=== PATIENT | male | born 1975 | race Caucasian/White ===

== ENCOUNTER 2018-03-02 15:49 | Emergency (ER) | payer OTHER ==
[2018-03-02 16:06] VITALS: BP 114/89; PULSE 96; TEMP 98.3; BMI 27.1
--- NOTE | 2018-03-02 16:07 | PDOC ---
Rapid Medical Evaluation Time Seen by Provider: 03/02/18 16:03 Medical Evaluation: Allergies Allergy/AdvReac Type Severity Reaction Status Date / Time No Known Allergies Allergy Verified 03/02/18 16:01 Vital Signs Temp Pulse Resp BP Pulse Ox 98.3 F 96 H 18 114/89 100 03/02/18 16:01 03/02/18 16:01 03/02/18 16:01 03/02/18 16:01 03/02/18 16:01 03/02/18 16:04 Pt c/o: left thumb exposed to body fluid, (wearing gloves) YPD pt on exam: noted seperation of cuticle from corner of nail bed of left 1 st digit Pt ordered for:none (pt debating labwork, meds, etc) p to proceed to the ED Discharge Disposition - Diagnosis Patient exposure to body fluids - Referrals - Patient Instructions - Post Discharge Activity
--- NOTE | 2018-03-02 17:08 | PDOC ---
History of Present Illness - General Chief Complaint: Blood/Body Fluid Exposure SJR Stated Complaint: LT THUMB PAIN, BODILY EXPOSURE (YPD) Time Seen by Provider: 03/02/18 16:03 Past History - Past Medical History Allergies/Adverse Reactions: Allergies Allergy/AdvReac Type Severity Reaction Status Date / Time No Known Allergies Allergy Verified 03/02/18 16:01 Home Medications: Ambulatory Orders Cephalexin Monohydrate [Keflex -] 500 mg PO BID #14 capsule 03/02/18 - Immunization History Immunization Up to Date: Yes - Suicide/Smoking/Psychosocial Hx Smoking Status: No Smoking History: Never smoked Number of Cigarettes Smoked Daily: 0 Hx Alcohol Use: No Drug/Substance Use Hx: No *Physical Exam - Vital Signs Last Vital Signs Temp Pulse Resp BP Pulse Ox 98.3 F 96 H 18 114/89 100 03/02/18 16:01 03/02/18 16:01 03/02/18 16:01 03/02/18 16:01 03/02/18 16:01 *DC/Admit/Observation/Transfer Diagnosis at time of Disposition: Patient exposure to body fluids, Avulsion fracture - Discharge Dispostion Disposition: HOME Condition at time of disposition: Stable Decision to Admit order: No - Referrals Referrals: Abdulkadir Frank MD [Staff Physician] - - Patient Instructions Printed Discharge Instructions: DI for Avulsion Fracture Additional Instructions: Your x-ray showed a small fracture in the thumb. Given the cut, please take the antibiotics for the next week. Wear the spint for the next week You may take Motrin 800mg every 8 hours as needed for pain Ice the finger as needed for pain Follow up with ortho next week. A referral has been provided. Return to the ED if you have worsening pain, fevers, chills, or if you have any changes in your symptoms - Post Discharge Activity Forms/Work/School Notes: Back to Work
== END 2018-03-02 17:18 | disposition home or self-care (01) ==
LOC: JER 15:49
PROC: 2W3HX1Z Immobilization of Left Thumb using Splint (ICD-10-PCS; principal; 2018-03-02)
DX: Z77.21 Contact with and (suspected) exposure to potentially hazardous body fluids (principal); S62.525A Nondisplaced fracture of distal phalanx of left thumb, initial encounter for closed fracture; Y35.811A Legal intervention involving manhandling, law enforcement official injured, initial encounter; Y93.89 Activity, other specified; Y92.89 Other specified places as the place of occurrence of the external cause; Y99.0 Civilian activity done for income or pay
CPT/HCPCS: 73140-TC-LT-FY; 99281-25

== ENCOUNTER 2019-03-09 14:35 | Emergency (ER) | payer OTHER ==
--- NOTE | 2019-03-09 14:46 | PDOC ---
Rapid Medical Evaluation Chief Complaint: Shortness of Breath Time Seen by Provider: 03/09/19 14:42 Medical Evaluation: Allergies Allergy/AdvReac Type Severity Reaction Status Date / Time No Known Allergies Allergy Verified 03/02/18 16:01 03/09/19 14:43 I have performed a brief in-person evaluation of this patient. The patient presents with a chief complaint of: CP, SOB since 8AM. Pertinent physical exam findings: mild diarphoresis , + pain Mid-epigastric I have ordered the following: EKG The patient will proceed to the ED for further evaluation. Discharge Disposition - Diagnosis Chest pain - Referrals - Patient Instructions - Post Discharge Activity
[2019-03-09 14:47] VITALS: TEMP 98.1; BMI 27.2
[2019-03-09 15:59] LABS: BASO % 0.5 % (0-2.0); EOS % 0.6 % (0-4.5); HEMATOCRIT 43.6 % (35.4-49); HEMOGLOBIN 14.5 GM/dL (11.7-16.9); LYMPH % 26.7 % (8-40); MCH 29.3 pg (25.7-33.7); MCHC 33.4 g/dl (32.0-35.9); MEAN CELL VOLUME 87.8 fl (80-96); MEAN PLT VOLUME 8.7 fl (7.5-11.1); MONO % 7.1 % (3.8-10.2); NEUT % 65.1 % (42.8-82.8); PLATELET COUNT 217 K/MM3 (134-434); RBC 4.97 M/mm3 (4.00-5.60); RDW 13.1 % (11.9-15.9); WHITE BLOOD COUNT 7.1 K/mm3 (4.0-10.0)
--- NOTE | 2019-03-09 16:15 | PDOC ---
History of Present Illness - General Chief Complaint: Chest Pain Stated Complaint: CHEST PAIN Time Seen by Provider: 03/09/19 14:42 History Source: Patient Exam Limitations: No Limitations - History of Present Illness Initial Comments: 03/09/19 16:33 43 year old male with no PMH presented ED for chest pain since 824 today. Pt stated the pain was substernal, felt like a cramp/squeeze, 10/10, non-radiating lasted ten seconds, then he felt a "pop" and the pain decreased to a 2/10, which is has remained until now. Pt admitted to diaphoresis, shortness of breath and lightheadedness during the 10 second episode, denied current symptoms. Pt denied PR in mother/father/siblings, hx of early in family. Pt denied heavy lifting. Allergies: NKDA Past History - Past Medical History Allergies/Adverse Reactions: Allergies Allergy/AdvReac Type Severity Reaction Status Date / Time No Known Allergies Allergy Verified 03/09/19 14:43 Home Medications: Ambulatory Orders NK [No Known Home Medication] 03/09/19 COPD: No - Immunization History Immunization Up to Date: Yes - Suicide/Smoking/Psychosocial Hx Smoking Status: No Smoking History: Never smoked Number of Cigarettes Smoked Daily: 0 Information on smoking cessation initiated: No Hx Alcohol Use: No Drug/Substance Use Hx: No Review of Systems - Review of Systems Able to Perform ROS?: Yes Comments:: 03/09/19 16:31 General: denied fever, chills, generalized weakness. HEENT: denied sore throat, rhinorrhea, ear pain. Heart: admitted to chest pain, diaphoresis, lightheadednesss. denied palpitations, syncope. Respiratory: admitted to shortness of breath. denied cough, sputum production, hemoptysis. Abdomen: denied abdominal pain, nausea, vomiting, diarrhea, constipation, blood in stool. : denied dysuria, increased urinary frequency, hematuria, urinary incontinence , flank pain. Back: denied back pain. Musculoskeletal: denied joint pain, muscle pain, joint swelling. Neurological: denied headache, dizziness, numbness, tingling, weakness. Skin: denied rash, laceration, abrasion. *Physical Exam - Vital Signs Last Vital Signs Temp Pulse Resp BP Pulse Ox 98.1 F 96 H 17 139/92 96 03/09/19 14:44 03/09/19 14:44 03/09/19 14:44 03/09/19 14:44 03/09/19 14:44 - Physical Exam Comments: 03/09/19 16:32 Constitutional: Well-nourished, Well-developed, appearing stated age. HEENT: head is normocephalic, atraumatic. EOMI. PERRLA. Neck: supple. Full ROM. Heart: regular rhythm. no murmurs, rubs or gallops. Chest: no tenderness to palpation of chest. tenderness to palpation of sternum. Lungs: clear to auscultation bilaterally. no crackles, rhonchi or wheezing. no stridor. Abdomen: soft, nontender. normal bowel sounds. no rebound, guarding, masses. Extremities: peripheral pulses intact. no lower extremity edema. Neurological: CN 2-12 grossly intact. moves all four extremities. Psych: awake, alert, oriented x3. follows commands. answers questions appropriately. ED Treatment Course - LABORATORY CBC & Chemistry Diagram: 03/09/19 15:45 03/09/19 15:45 - ADDITIONAL ORDERS Additional order review: 03/09/19 15:45 RBC 4.97 MCV 87.8 MCHC 33.4 RDW 13.1 MPV 8.7 Neutrophils % 65.1 D Lymphocytes % 26.7 D Monocytes % 7.1 Eosinophils % 0.6 Basophils % 0.5 Medical Decision Making - Medical Decision Making 03/09/19 16:15 43 year old male with above PMH presented to ED for chest pain associated with shortness of breath, lightheadedness. Initial Vital Signs Temp Pulse Resp BP Pulse Ox 98.1 F 96 H 17 139/92 96 03/09/19 14:44 03/09/19 14:44 03/09/19 14:44 03/09/19 14:44 03/09/19 14:44 Afebrile. No tachycardia. No tachypnea. Mild hypertension. No hypoxia on room air. Medications ordered: ASA 324 chew EKG performed at 1440: rate 80, regular rhythm, normal axis, normal intervals, no acute ST changes. CBC WBC 7.1 K/mm3 (4.0-10.0) 03/09/19 15:45 RBC 4.97 M/mm3 (4.00-5.60) 03/09/19 15:45 Hgb 14.5 GM/dL (11.7-16.9) 03/09/19 15:45 Hct 43.6 % (35.4-49) 03/09/19 15:45 MCV 87.8 fl (80-96) 03/09/19 15:45 MCH 29.3 pg (25.7-33.7) 03/09/19 15:45 MCHC 33.4 g/dl (32.0-35.9) 03/09/19 15:45 RDW 13.1 % (11.9-15.9) 03/09/19 15:45 Plt Count 217 K/MM3 (134-434) 03/09/19 15:45 MPV 8.7 fl (7.5-11.1) 03/09/19 15:45 Absolute Neuts (auto) 4.6 K/mm3 (1.5-8.0) 03/09/19 15:45 Neutrophils % 65.1 % (42.8-82.8) D 03/09/19 15:45 Lymphocytes % 26.7 % (8-40) D 03/09/19 15:45 Monocytes % 7.1 % (3.8-10.2) 03/09/19 15:45 Eosinophils % 0.6 % (0-4.5) 03/09/19 15:45 Basophils % 0.5 % (0-2.0) 03/09/19 15:45 Nucleated RBC % 0 % (0-0) 03/09/19 15:45 No leukocytosis. No anemia. 03/09/19 16:43 CMP Sodium 140 mmol/L (136-145) 03/09/19 15:45 Potassium 4.5 mmol/L (3.5-5.1) 03/09/19 15:45 Chloride 104 mmol/L (98-107) 03/09/19 15:45 Carbon Dioxide 28 mmol/L (21-32) 03/09/19 15:45 Anion Gap 7 MMOL/L (8-16) L 03/09/19 15:45 BUN 17 mg/dL (7-18) 03/09/19 15:45 Creatinine 1.0 mg/dL (0.55-1.3) 03/09/19 15:45 Est GFR (CKD-EPI)AfAm 107.87 03/09/19 15:45 Est GFR (CKD-EPI)NonAf 93.07 03/09/19 15:45 Random Glucose 91 mg/dL (74-106) 03/09/19 15:45 Calcium 9.4 mg/dL (8.5-10.1) 03/09/19 15:45 Total Bilirubin 0.9 mg/dL (0.2-1) 03/09/19 15:45 AST 23 U/L (15-37) 03/09/19 15:45 ALT 36 U/L (13-61) 03/09/19 15:45 Alkaline Phosphatase 56 U/L (45-117) 03/09/19 15:45 Creatine Kinase 235 U/L (26-308) 03/09/19 15:45 Troponin I < 0.02 ng/ml (0.00-0.05) 03/09/19 15:45 Total Protein 7.7 g/dl (6.4-8.2) 03/09/19 15:45 Albumin 4.1 g/dl (3.4-5.0) 03/09/19 15:45 No electrolyte abnormalities. No PEPE. No transaminitis. Troponin within normal limits. 03/09/19 19:05 CTA chest/abdomen/pelvis report: no definite findings of acute pathology are identified. the thoracoabdominal aorta dem onstrates no CT evidence of dissection or aneurysm. minimal bibasilar depedent subpleural atelectasis. cholelithiasis. colonic diverticulosis. small left inguinal hernia containing fat. Pending repeat troponin. Lipase added on to prior lab work. 03/09/19 19:55 Lipase normal. Second troponin within normal limits. Pt informed of results by Dr. Mathis. Pt discharged. *DC/Admit/Observation/Transfer Diagnosis at time of Disposition: Chest pain - Discharge Dispostion Condition at time of disposition: Stable Decision to Admit order: No - Referrals - Patient Instructions Printed Discharge Instructions: DI for Atypical Chest Pain Additional Instructions: You were seen today for chest pain. Your lab work was normal. Your Cat-Scan of your Aorta was normal. Follow up with your primary care doctor within 4 days. Your care is not complete until you follow up. Return to the Emergency Department for increasing pain, severe back pain, chest pain, shortness of breath, vomiting, lightheadedness like you may pass out, passing out, or any other new, worsening or concerning symptoms. - Post Discharge Activity Forms/Work/School Notes: Back to Work
[2019-03-09 16:26] LABS: ALBUMIN 4.1 g/dl (3.4-5.0); ALK PHOS 56 U/L (45-117); ANION GAP 7 MMOL/L (8-16); BILIRUBIN,TOTAL 0.9 mg/dL (0.2-1); BLOOD UREA NITROGEN 17 mg/dL (7-18); CALCIUM 9.4 mg/dL (8.5-10.1); CHLORIDE 104 mmol/L (98-107); CO2 28 mmol/L (21-32); GLUCOSE,RANDOM 91 mg/dL (74-106); POTASSIUM 4.5 mmol/L (3.5-5.1); SGOT/AST 23 U/L (15-37); SGPT/ALT 36 U/L (13-61); SODIUM 140 mmol/L (136-145); TOT PROT 7.7 g/dl (6.4-8.2)
[2019-03-09] MEDS ORDERED: ASPIRIN 81 MG CHEWABLE TABLETS PO ONE (16:35)
[2019-03-09] MEDS ORDERED: ASPIRIN 325 MG TABLET ONE (17:07)
[2019-03-09] MEDS ORDERED: ERYTHROMYCIN 0.5% OPHTHALMIC OINTMENT 3.5 GM TUBE ONE (17:12)
--- NOTE | 2019-03-09 17:30 | PDOC ---
Documentation entered by Shabnam Vasquez SCRIBE, acting as scribe for Hermes Mathis MD. Hermes Mathis MD: This documentation has been prepared by the Pedro castro Nirvannie, SCRIBE, under my direction and personally reviewed by me in its entirety. I confirm that the documentation accurately reflects all work, treatment, procedures, and medical decision making performed by me. Attending Attestation - Resident Resident Name: RobeBarby - ED Attending Attestation I have performed the following: I have examined & evaluated the patient, The case was reviewed & discussed with the resident, I agree w/resident's findings & plan - HPI HPI: 03/09/19 16:53 The patient is a 43 year old male, with no significant past medical history, who presents to the emergency department with, chest pain. 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 Currently reports only pain. Denies hx similar sxs. Denies hx smoking. Pt's paternal grandfather had [place] in 40s, but no other family hx cardiac disease. He denies any recent fever or chills. Denies headache. Denies weakness/ numbness. He denies any recent nausea, vomit, diarrhea or constipation. He denies any recent dysuria, frequency, urgency or hematuria. Allergies: NKDA Social History: YPD, no drug use - Physicial Exam PE: 03/09/19 16:53 GENERAL: Awake, alert, and fully oriented, in no acute distress HEAD: No signs of trauma EYES: PERRLA, EOMI, sclera anicteric, conjunctiva clear ENT: Nares patent, oropharynx clear without exudates. Moist mucosa NECK: Normal ROM, supple, no lymphadenopathy, JVD, or masses LUNGS: Breath sounds equal, clear to auscultation bilaterally. No wheezes, and no crackles HEART: Regular rate and rhythm, normal S1 and S2, no murmurs, rubs or gallops ABDOMEN: Soft, nontender, normoactive bowel sounds. No guarding, no rebound. No masses EXTREMITIES: Normal range of motion, no edema. No cords, erythema, or tenderness. 2+ pulses in all extremities BACK: No midline spinal tenderness in cervical/thoracic/lumbar region NEUROLOGICAL: Normal speech, cranial nerves intact, equal strength and sensation b/l SKIN: Warm, Dry, normal turgor, no rashes or lesions noted. - Medical Decision Making 03/09/19 17:26 43yo M with no sig PMH presents to the ED with chest pain a/w diaphoresis and a "pop" in his lower chest. Vitals and exam unremarkable DDx includes ACS vs ptx vs aortic dissection vs MSK pain vs GERD Plan -labs -XR -CTA chest, abd , pelvis -reassess 03/09/19 19:59 Dissection study negative +gallstones, on rpt evaluation, pt feeling better +mild ttp to xiphid bone, but no epigastric or RUQ ttp. Neg murphys LFTs wnl, lipase negative Trop repeated, also negative Pt currently asymptomatic, requests DC home Unclear etiology of pain, but pt will f/u with his PMD Dr. Emmanuel within 2-3 days I discussed the physical exam findings, ancillary test results and final diagnoses with the patient. I answered all of the patient's questions. The patient was satisfied with the care received and felt comfortable with the discharge plan and treatment plan. The patient will call their primary care physician within 24 hours to arrange follow-up and will return to the Emergency Department with any new, persistent or worsening symptoms. Heart Score/ECG Review - History History: Moderately suspicious - Electrocardiogram EKG: Non specific repolarization disturbance - Age Age: </= 45 - Risk Factors Based on the list above the patient has:: 1-2 risk factors - Troponin Troponin: </= normal limit - Score Heart Score - Total: 3 #1 03/09/19 18:25 Twelve-lead EKG was performed and reviewed by me. Normal sinus rhythm, rate 80. Normal axis and intervals. No ST elevations. Peak T waves in V3 to V5.
[2019-03-09] MEDS ORDERED: ASPIRIN 81 MG CHEWABLE TABLETS ONE (18:33)
[2019-03-09 19:50] LABS: LIPASE 197 U/L (73-393)
[2019-03-09 20:07] VITALS: BP 142/78; PULSE 78
--- NOTE | 2019-03-10 11:06 | EKG ---
Test Reason : Blood Pressure : / mmHG Vent. Rate : 080 BPM Atrial Rate : 080 BPM P-R Int : 148 ms QRS Dur : 092 ms QT Int : 354 ms P-R-T Axes : 052 015 054 degrees QTc Int : 408 ms NORMAL SINUS RHYTHM NORMAL ECG WHEN COMPARED WITH ECG OF 10-OCT-2012 10:18, NO SIGNIFICANT CHANGE WAS FOUND Confirmed by PJ ROWAN MD ([id number]) on 03/10/2019 11:06:37 AM Referred By: Confirmed By:PJ ROWAN MD
== END 2019-03-09 20:08 | disposition home or self-care (01) ==
LOC: JER 14:35
DX: R07.9 Chest pain, unspecified (principal)
CPT/HCPCS: 36415; 71046-TC-FY; 71275-TC; 74174-TC; 80053; 82550; 82553; 83690; 84484; 85025; 93005; 93010; 99282-25

== ENCOUNTER 2022-03-23 11:38 | Emergency (ER) | payer OTHER, BC ==
[2022-03-23 11:53] VITALS: BP 141/96; PULSE 75; TEMP 98.4; BMI 27.9
[2022-03-23] MEDS ORDERED: IBUPROFEN 400 MG TABLET (FP) PO ONE ×2 (12:01→12:03)
== END 2022-03-23 12:09 | disposition home or self-care (01) ==
LOC: FER 11:38
DX: M25.561 Pain in right knee (principal)
CPT/HCPCS: 99283-25